=== PATIENT | female | born 1975 | race Two or more races ===

== ENCOUNTER → 2016-07-01 | Outpatient (CLI) | payer BC | END | disposition home or self-care (01) | LOC: RAD.S 09:36 | DX: Z12.31 Encounter for screening mammogram for malignant neoplasm of breast (principal); N63 Unspecified lump in breast ==

== ENCOUNTER → 2016-07-08 | Outpatient (CLI) | payer BC | END | disposition home or self-care (01) | LOC: RAD.S 07-02 23:00 | DX: R92.8 Other abnormal and inconclusive findings on diagnostic imaging of breast (principal); N63 Unspecified lump in breast; N60.02 Solitary cyst of left breast ==